=== PATIENT | male | born 1990 | race Caucasian/White ===

== ENCOUNTER 2019-08-22 10:52 | Emergency (ER) | payer SELFPAY ==
[2019-08-22 11:15] VITALS: BP 152/93; PULSE 90; RESP 16; TEMP 36.4; O2SAT 98; BMI 25.8
--- NOTE | 2019-08-22 12:14 | PC.NURSE ---
Examination of the Ear deferred to provider.
--- NOTE | 2019-08-22 12:40 | ED_ITS ---
HPI - Ear Problem <ERIC Garduno - Last Filed: 08/22/19 13:36> General Chief complaint: Ear Stated complaint: left side earache Time Seen by Provider: 08/22/19 11:42 Source: patient and family Mode of arrival: Ambulatory Limitations: no limitations History of Present Illness HPI Narrative: The patient is a 29-year-old male nonsmoker presents with his father for chief complaint of left ear pain. He states he has a history of remote ear infections, but no recent antibiotics. He has not taken any Tylenol or Motrin. He complains of recent cough and congestion. Denies any fevers nausea vomiting or diarrhea. States that he had sudden onset pain when he woke up this morning. Related Data Previous Rx's Medication Instructions Recorded amoxicillin-pot clavulanate 1 tab PO BID #14 tab 08/22/19 [Augmentin] Allergies Allergy/AdvReac Type Severity Reaction Status Date / Time No Known Drug Allergies Allergy Verified 08/22/19 11:15 Review of Systems <ERIC Garduno - Last Filed: 08/22/19 13:36> Review of Systems Narrative: GENERAL: Denies chills, fatigue, malaise, fever, sweats. HEENT: See HPI RESPIRATORY: Denies dyspnea, cough, wheezing, hemoptysis, sputum. CARDIOVASCULAR: Denies chest pain, palpitations, orthopnea, edema, GASTROINTESTINAL: Denies nausea, vomiting, abdominal pain, diarrhea, constipation, melena. : Denies dysuria, frequency, incontinence, hematuria, urinary retention. MUSCULOSKELETAL: denies weakness, joint pain, or bony pain SKIN: Denies rash, skin lesions, or other NEUROLOGIC: Denies weakness, headache, numbness, change in speech, confusion, seizures, incoordination. PSYCHIATRIC: No concerning psychosocial issues. 12 point review of systems is negative except for those stated above Exam <ERIC Garduno - Last Filed: 08/22/19 13:36> Narrative Exam Narrative: GENERAL: This is a well-nourished, well-developed patient, appears uncomfortable HEAD: Atraumatic. Normocephalic. No temporal or scalp tenderness. EYES: Pupils equal round and reactive. Extraocular motions intact. No scleral icterus. No injection or drainage. ENT: Nose without bleeding, purulent drainage or septal hematoma. Throat without erythema, tonsillar hypertrophy or exudate. Uvula midline. Airway patent. Left TM bulging and erythematous. Right TM pearly mosquera. Bilateral ear canals within normal limits. NECK: Trachea midline. No JVD or lymphadenopathy. Supple, nontender, no meningeal signs. CARDIOVASCULAR: Regular rate and rhythm RESPIRATORY: Clear to auscultation. Breath sounds equal bilaterally. No wheezes, rales, or rhonchi. No cough exam. No increased respiratory effort. No accessory muscle use. EXTREMITIES: No clubbing, cyanosis, or edema. No joint tenderness, effusion, or edema noted. BACK: Nontender without deformity or crepitance. No flank tenderness. NEURO: AOx3. SKIN: No rash or erythema on visible skin Initial Vital Signs Initial Vital Signs: Vital Signs Temperature 97.5 F L 08/22/19 11:15 Pulse Rate 90 08/22/19 11:15 Respiratory Rate 16 08/22/19 11:15 Blood Pressure 152/93 H 08/22/19 11:15 Pulse Oximetry 98 08/22/19 11:15 <Zahra Shea MD - Last Filed: 08/22/19 20:07> Initial Vital Signs Initial Vital Signs: Vital Signs Temperature 97.5 F L 08/22/19 11:15 Pulse Rate 90 08/22/19 11:15 Respiratory Rate 16 08/22/19 11:15 Blood Pressure 152/93 H 08/22/19 11:15 Pulse Oximetry 98 08/22/19 11:15 Course <ERIC Garduno - Last Filed: 08/22/19 13:36> Vital Signs Vital signs: Vital Signs - 8 hr 08/22/19 11:15 Temperature 97.5 F L Pulse Rate 90 Respiratory Rate 16 Blood Pressure 152/93 H Pulse Oximetry 98 <Zahra Shea MD - Last Filed: 08/22/19 20:07> Vital Signs Vital signs: Vital Signs - 8 hr 08/22/19 11:15 Temperature 97.5 F L Pulse Rate 90 Respiratory Rate 16 Blood Pressure 152/93 H Pulse Oximetry 98 Medical Decision Making <ERIC Garduno - Last Filed: 08/22/19 13:36> MDM Narrative Medical decision making narrative: The patient is a 29-year-old male who presents with a chief complaint of sudden onset left ear pain this morning. On exam, he has left-sided otitis media. He has no signs of systemic infection, no fevers vomiting diarrhea etcetera. Will treat with Augmentin b.i.d. for 7 days. Discussed at length follow up with primary care provider. Discussed [id number] measures as needed and able. Discussed come back to ER for acute concerns. Patient has no questions or concerns upon discharge and states understanding of return precautions as well as follow-up care. Discharge Plan Departure Patient Disposition: Home Clinical Impression: Otitis media Qualifiers: Otitis media type: unspecified Chronicity: acute Qualified Code(s): H66.90 - Otitis media, unspecified, unspecified ear Discharge Date/Time: 08/22/19 12:14 Instructions: Ear Infections (Alternative Therapy), Middle Ear Infections (Alternative Therapy), DI for Otitis Media (Middle Ear Infection)-Child Activity Restrictions/Additional Instructions: Today I found a left ear infection. I sent a prescription of amoxicillin with clavulanic acid to [facility] [place] [facility] Please use conservative measures including Tylenol, Motrin, warm packs. Please follow-up with primary care provider. I've given the contact information [facility] resource specialist they can help you find a primary care provider Please come back to the emergency department for any acute concerns. Prescriptions: New amoxicillin-pot clavulanate [Augmentin] 875-125 mg tablet 1 tab PO BID Qty: 14 RF: 0 Referrals: [facility] [Outside]
== END 2019-08-22 12:14 | disposition home or self-care (01) ==
PROVIDERS: Emergency Provider Nurse Practitioner Family
DX: H66.92 Otitis media, unspecified, left ear (principal)
CPT/HCPCS: 99281

== ENCOUNTER 2020-06-12 11:39 | Emergency (ER) | payer OTHER, SELFPAY ==
[2020-06-12 11:49] VITALS: BP 154/99; PULSE 103; RESP 16; TEMP 37.1; O2SAT 99; BMI 30.8
--- NOTE | 2020-06-12 11:49 | ED.DENTAL ---
HPI - Dental/Oral General Stated complaint: abcess tooth, lt side Time Seen by Provider: 06/12/20 11:40 Source: patient Mode of arrival: Ambulatory Limitations: no limitations History of Present Illness HPI Narrative: 30-year-old male smoker with history of widespread poor dentition presents with family member and a chief complaint of a spontaneously draining abscess that started draining just prior to arrival. He had been having some pain and minimal facial swelling for the past few days and actually just went to an outside clinic and was given antibiotics and encouragement to follow up with the dentist. There was no attempt at incision and drainage in their department and he states that spontaneously drained en route. MD Complaint: tooth pain Teeth map: 1. Onset (ago): day(s) Duration: constant Severity: moderate Relieving factors: nothing Exacerbating factors: chewing, cold and heat Context: history of dental caries Associated symptoms: gum swelling Treatment prior to arrival: none Related Data Previous Rx's Medication Instructions Recorded amoxicillin-pot clavulanate 1 tab PO BID #14 tab 08/22/19 [Augmentin] Allergies Allergy/AdvReac Type Severity Reaction Status Date / Time No Known Drug Allergies Allergy Verified 08/22/19 11:15 Review of Systems Constitutional Constitutional: Denies chills, Denies fatigue, Denies fever(s), Denies frequent falls, Denies lethargy and Denies weakness Eyes Eyes: Denies change in vision, Denies eye discharge, Denies irritation and Denies loss of vision ENT Ears, Nose, Mouth, and Throat: Denies change in voice, Denies dizziness, Denies neck pain, Denies sore throat and Denies throat swelling Comments: facial swelling, gum swelling, spontaneous drainage Cardiovascular Cardiovascular: Denies chest pain, Denies irregular heart rhythm, Denies lightheadedness, Denies palpitations, Denies dyspnea, Denies dyspnea on exertion and Denies orthopnea Respiratory Respiratory: Denies cough, Denies dyspnea, Denies dyspnea on exertion and Denies wheezing Gastrointestinal Gastrointestinal: Denies abdominal pain, Denies change in bowel habits, Denies diarrhea, Denies nausea and Denies vomiting Musculoskeletal Musculoskeletal: Denies neck pain and Denies numbness Integumentary/Breasts Skin/Breast: Denies pruritus, Denies erythema, Denies rash and Denies wounds Neurologic Neurologic: Denies behavioral changes, Denies confusion, Denies dizziness, Denies frequent falls, Denies loss of vision, Denies numbness and Denies weakness Psychiatric Psychiatric: Denies anxiety, Denies behavioral changes, Denies confusion, Denies depression, Denies homicidal ideation and Denies suicidal ideation Endocrine Endocrine: Denies fatigue, Denies flushing and Denies palpitations Hematologic/Lymphatic Hematologic/Lymphatic: Denies easy bruising Allergic/Immunologic Allergic/Immunologic: Denies urticaria, Denies throat swelling and Denies wheezing Patient History Smoking Status: Current every day smoker alcohol intake frequency: 0-2 drinks per day Substance Use Type: does not use Exam Narrative Exam Narrative: GEN: AOx3 and in mild distress EYES: Pupils are equal, round, and reactive to light and accommodation. Extraoccular muscles are intact bilaterally. There is no subconjunctival hemorrhage or exudate. ENT: minimal left facial swelling, widepsread poor dentition, minimal gum swelling. No ongoing fluctuance or significant ongoing drainage. CHEST: Lungs are clear to auscultation bilaterally and free of wheezes, rales, or rhonchi. Heart rate is regular rhythm, there are no murmurs, clicks, rubs, or gallops. There is no chest wall tenderness. ABD: Abdomen is soft and nontender. There is no guarding or rebound. Bowel sounds are normal in all 4 quadrants. There is no mass or organomegaly. EXT: Full painless ROM of all extremities with no loss of sensation or strength. SKIN: Warm, pink, and dry. No erythema or rash Discharge Plan Departure Patient Disposition: Home Clinical Impression: Abscess, dental Instructions: Tooth Abscess Activity Restrictions/Additional Instructions: *You have been diagnosed with [spontaneously draining dental abscess] *What to do: *Take medications as directed *Follow up with your dental provider in 2-3 days, call for an appointment. Let them know you were seen in the Emergency Department and that we ask that you be seen in follow up. We have given you contact info for Dr. Espinoza ( a local facial surgeon) who can help, or suggest other options. *Return to ER if you should have any new, worsening or concerning symptoms, such as [fever greater than 101 F, significant facial swelling, vomiting or inability to tolerate medications, or other bothersome symptoms] Prescriptions: No Action amoxicillin-pot clavulanate [Augmentin] 875-125 mg tablet 1 tab PO BID Qty: 14 RF: 0 Referrals: Ace Espinoza, DMD [Physician] -
== END 2020-06-12 11:58 | disposition home or self-care (01) ==
PROVIDERS: Emergency Provider Emergency Medicine
DX: K04.7 Periapical abscess without sinus (principal)
CPT/HCPCS: 99281

== ENCOUNTER 2020-12-27 13:19 | Emergency (ER) | payer OTHER, MEDICAID, SELFPAY ==
[2020-12-27 13:28] VITALS: BP 143/93; PULSE 100; RESP 15; TEMP 36.7; O2SAT 100; BMI 32.4
[2020-12-27 14:20] LABS: Add Manual Diff / Slide Review NO; Basophils Absolute Auto 100 /uL (0-100); Basophils Percent Auto 0.8 % (0-2); Eosinophils Absolute Auto 300 /uL (0-450); Eosinophils Percent Auto 2.4 % (2-4); Hematocrit 38.8 % (41-53); Hemoglobin 12.9 g/dL (13.5-17.5); Lymphocytes Absolute Auto 3200 /uL (1100-4500); Mean Corpuscular HGB Conc 33.3 % (30-36); Mean Corpuscular Hemoglobin 28.3 PG (26-34); Monocytes Absolute Auto 1500 /uL (0-900); Monocytes Percent Auto 10.7 % (3-14); Neutrophils Absolute Auto 8700 /uL (1500-7000); Neutrophils Percent Auto 63.1 % (50-75); Platelet Count 333 X10^3/uL (150-400); Red Blood Cell Count 4.57 X10^6/uL (4.5-5.9); Red Cell Distribution Width 13.3 % (11.6-14.8); White Blood Cell Count 13.8 X10^3/uL (4.5-11.0)
--- NOTE | 2020-12-27 14:24 | ED_ITS ---
HPI - Dental/Oral General Chief complaint: Dental/Oral Stated complaint: oral infection, on antibiotics but getting worse Time Seen by Provider: 12/27/20 13:58 Source: patient Mode of arrival: Ambulatory Limitations: no limitations History of Present Illness HPI Narrative: Patient is a 30-year-old male who presents with left-sided facial swelling. He was started on clindamycin yesterday 8 however today he has inc reasing left facial swelling. No fever or trismus. He has previously had dental abscess and placed on Augmentin in May of 2020. He has no dental appointment yet. No fever or chills. He has been taking ibuprofen for pain which does seem to be working. No difficulty swallowing. Related Data Previous Rx's Medication Instructions Recorded amoxicillin-pot clavulanate 1 tab PO BID #14 tab 08/22/19 [Augmentin] amoxicillin-pot clavulanate 1 tab PO Q12H #14 tab 12/27/20 [Augmentin] Allergies Allergy/AdvReac Type Severity Reaction Status Date / Time No Known Drug Allergies Allergy Verified 12/27/20 13:30 Review of Systems Review of Systems Narrative: GENERAL: Denies chills, fatigue, malaise, fever, sweats, travel HEENT: See HPI RESPIRATORY: Denies dyspnea, cough, wheezing, hemoptysis, sputum. CARDIOVASCULAR: Denies chest pain, palpitations, orthopnea, edema GASTROINTESTINAL: Denies nausea, vomiting, abdominal pain, diarrhea, constipation, melena. : Denies dysuria, frequency, incontinence, hematuria, urinary retention, flank pain. MUSCULOSKELETAL: Denies weakness, joint pain, or bony pain SKIN: No rash, no erythema, no pruritus NEUROLOGIC: Denies weakness, dizziness, headache, numbness, change in speech, confusion PSYCHIATRIC: No concerning psychosocial issues. 12 point review of systems is negative except for those stated above and HPI Patient History Social History Smoking Status: Current every day smoker Smoking Status: Current every day smoker alcohol intake frequency: holidays/special occasions only Substance Use Type: marijuana Exam Initial Vital Signs Initial Vital Signs: Vital Signs Temperature 98.1 F 12/27/20 13:28 Pulse Rate 100 H 12/27/20 13:28 Respiratory Rate 15 12/27/20 13:28 Blood Pressure 143/93 H 12/27/20 13:28 Pulse Oximetry 100 12/27/20 13:28 GENERAL: Well-appearing, well-nourished and in no acute distress. HEENT: Head atraumatic,EOMI, pupils reactive, no dental abscess no trismus obvious left-sided facial swelling no erythema no abscess swelling or induration CARDIOVASCULAR: Regular rate and rhythm without murmurs, rubs or gallops. RESPIRATORY: Breath sounds equal bilaterally, no wheezes rales or rhonchi. ABDOMEN: Soft, nontender. Normoactive bowel sounds all 4 quadrants. No guarding or rebound. EXTREMITIES: Normal range of motion, no clubbing or edema. Neurovascularly intact NEUROLOGICAL: Alert and oriented x4. SKIN: Warm, dry, no laceration, no petechiae, no rashes or lesions. Course Orders Ordered: Discontinued Medications Sodium Chloride (Normal Saline 0.9%) 1,000 mls @ 1,000 mls/hr IV BOLUS ONE Stop: 12/27/20 14:32 Last Infusion: 12/27/20 17:03 Dose: 0 mls/hr Documented by: Admin: 12/27/20 14:30 Dose: 1,000 mls/hr Documented by: LILIA Ampicillin Sodium/Sulbactam (Sodium 3 gm/ Sodium Chloride) 100 mls @ 100 mls/hr IV NOW ONE Stop: 12/27/20 14:26 Last Infusion: 12/27/20 17:03 Dose: 0 mls/hr Documented by: Admin: 12/27/20 14:30 Dose: 100 mls/hr Documented by: LILIA Ketorolac Tromethamine (Ketorolac 30 Mg/Ml Vial) 15 mg IV NOW ONE Stop: 12/27/20 16:36 Last Admin: 12/27/20 16:38 Dose: 15 mg Documented by: DEZ Vital Signs Vital signs: Vital Signs - 8 hr 12/27/20 13:28 12/27/20 14:41 12/27/20 14:42 Temperature 98.1 F Pulse Rate 100 H 94 H Respiratory Rate 15 13 Blood Pressure 143/93 H 158/106 H Pulse Oximetry 100 100 MDM - Dental/Oral Lab Data Attestation: I reviewed the patient's lab results. Result diagrams: 12/27/20 14:10 12/27/20 14:10 Labs: Lab Results 12/27/20 12/27/20 12/27/20 Range/Units 14:10 14:10 14:10 WBC 13.8 H (4.5-11.0) X10^3/uL RBC 4.57 (4.5-5.9) X10^6/uL Hgb 12.9 L (13.5-17.5) g/dL Hct 38.8 L (41-53) % MCV 85.0 (80-100) fL MCH 28.3 (26-34) PG MCHC 33.3 (30-36) % RDW 13.3 (11.6-14.8) % Plt Count 333 (150-400) X10^3/uL Neut % (Auto) 63.1 (50-75) % Lymph % (Auto) 23.0 L (25-40) % [place] % (Auto) 10.7 (3-14) % Eos % (Auto) 2.4 (2-4) % Baso % (Auto) 0.8 (0-2) % Neut # (Auto) 8700 H (3736-3369) /uL Lymph # (Auto) 3200 (3005-4417) /uL [place] # (Auto) 1500 H (0-900) /uL Eos # (Auto) 300 (0-450) /uL Baso # (Auto) 100 (0-100) /uL PT 12.0 (10.1-12.7) SECONDS INR 1.1 (0.9-1.3) APTT 46 H (26.4-36.2) SECONDS Sodium 138 (137-145) mmol/L Potassium 3.9 (3.4-5.1) mmol/L Chloride 103 (98-107) mmol/L Carbon Dioxide 29 (22-32) mmol/L BUN 17 (9-20) mg/dL Creatinine 0.85 (0.66-1.25) mg/dL Estimated GFR > 60.0 (>60) mL/min BUN/Creatinine Ratio 20.0 (6-22) Glucose 98 (70-100) mg/dL Lactate (0.7-2.1) mmol/L Calcium 9.7 (8.4-10.2) mg/dL Total Bilirubin 0.4 (0.2-1.3) mg/dL AST 30 (17-59) IU/L ALT 26 (<50) IU/L Alkaline Phosphatase 88 (38-126) U/L Total Protein 7.4 (6.3-8.2) g/dL Albumin 4.1 (3.5-5.0) g/dL Globulin 3.3 (1.7-4.1) g/dL Albumin/Globulin Ratio 1.2 (1.0-2.8) Lipase 41 (23-300) U/L Procalcitonin 0.05 (<0.5) ng/mL 12/27/20 Range/Units 14:10 WBC (4.5-11.0) X10^3/uL RBC (4.5-5.9) X10^6/uL Hgb (13.5-17.5) g/dL Hct (41-53) % MCV (80-100) fL MCH (26-34) PG MCHC (30-36) % RDW (11.6-14.8) % Plt Count (150-400) X10^3/uL Neut % (Auto) (50-75) % Lymph % (Auto) (25-40) % [place] % (Auto) (3-14) % Eos % (Auto) (2-4) % Baso % (Auto) (0-2) % Neut # (Auto) (6462-3424) /uL Lymph # (Auto) (0613-8636) /uL [place] # (Auto) (0-900) /uL Eos # (Auto) (0-450) /uL Baso # (Auto) (0-100) /uL PT (10.1-12.7) SECONDS INR (0.9-1.3) APTT (26.4-36.2) SECONDS Sodium (137-145) mmol/L Potassium (3.4-5.1) mmol/L Chloride (98-107) mmol/L Carbon Dioxide (22-32) mmol/L BUN (9-20) mg/dL Creatinine (0.66-1.25) mg/dL Estimated GFR (>60) mL/min BUN/Creatinine Ratio (6-22) Glucose (70-100) mg/dL Lactate 0.6 L (0.7-2.1) mmol/L Calcium (8.4-10.2) mg/dL Total Bilirubin (0.2-1.3) mg/dL AST (17-59) IU/L ALT (<50) IU/L Alkaline Phosphatase (38-126) U/L Total Protein (6.3-8.2) g/dL Albumin (3.5-5.0) g/dL Globulin (1.7-4.1) g/dL Albumin/Globulin Ratio (1.0-2.8) Lipase (23-300) U/L Procalcitonin (<0.5) ng/mL MDM Narrative Medical decision making narrative: At this time patient has mild leukocytosis with probable dental infection with mild facial swelling. No trismus or airway compromise. Previously on Augmentin which seemed to work best for him. He has only been on clindamycin short while at this time will switch his antibiotics. No dental abscess to drain. Discharge Plan Departure Patient Disposition: Home Clinical Impression: Dental infection Instructions: DI for Dental Pain Activity Restrictions/Additional Instructions: *You have been diagnosed with dental infection *What to do: At this time we will switch appear antibiotics to see if it helps her facial swelling. Blood work is overall reassuring but does show infection. *Continue to take medications as directed Stop taking clindamycin Start taking Augmentin 875 mg twice a day for 7 days--> SENT TO [facility] [place] Continue ibuprofen 800 mg every 8 hours if needed for pain *Follow up with your primary care provider in 2-3 days *Return to ER if you should have increasing facial swelling, difficulty breathing, redness or any new, worsening or concerning symptoms Prescriptions: New amoxicillin-pot clavulanate [Augmentin] 875-125 mg tablet 1 tab PO Q12H Qty: 14 RF: 0 No Action amoxicillin-pot clavulanate [Augmentin] 875-125 mg tablet 1 tab PO BID Qty: 14 RF: 0
[2020-12-27] MEDS: AMPICILLIN/SULBACTAM 3 GM 3 GM in SODIUM CHLORIDE 0.9% 100 ML IV (14:30)
[2020-12-27] MEDS: SODIUM CHLORIDE 0.9% 1,000 ML 1000 ML IV (14:30)
[2020-12-27 14:31] LABS: INR 1.1 (0.9-1.3)
[2020-12-27 14:34] LABS: PTT Partial Thromboplastin Tim 46 SECONDS (26.4-36.2)
[2020-12-27 14:40] LABS: Alanine Aminotransferase 26 IU/L (<50); Albumin 4.1 g/dL (3.5-5.0); Albumin Globulin Ratio 1.2 (1.0-2.8); Alkaline Phosphatase 88 U/L (38-126); Aspartate Aminotransferase 30 IU/L (17-59); Bilirubin Total 0.4 mg/dL (0.2-1.3); Blood Urea Nitrogen 17 mg/dL (9-20); Calcium 9.7 mg/dL (8.4-10.2); Carbon Dioxide 29 mmol/L (22-32); Chloride 103 mmol/L (98-107); Estimated Glomerular Filt Rate > 60.0 mL/min (>60); Globulin 3.3 g/dL (1.7-4.1); Glucose 98 mg/dL (70-100); HEMOLYSIS < 15 (0-50); Lactate (Lactic Acid) 0.6 mmol/L (0.7-2.1); Lipase 41 U/L (23-300); Potassium 3.9 mmol/L (3.4-5.1); Sodium 138 mmol/L (137-145); Total Protein 7.4 g/dL (6.3-8.2)
[2020-12-27 14:41] VITALS: PULSE 94; RESP 13; O2SAT 100
[2020-12-27 14:42] VITALS: BP 158/106
[2020-12-27 14:56] LABS: Procalcitonin 0.05 ng/mL (<0.5)
[2020-12-27] MEDS: KETOROLAC 30 MG/ML VIAL 15 MG IV (16:38)
[2020-12-27 17:03] VITALS: BP 172/92; PULSE 93; O2SAT 100
== END 2020-12-27 17:04 | disposition home or self-care (01) ==
PROVIDERS: Emergency Provider Emergency Medicine
DX: K04.7 Periapical abscess without sinus (principal)
CPT/HCPCS: 36415; 80053; 83605; 83690; 84145; 85025; 85610; 85730; 87040; 96365; 96366; 96375; 99284; J0295; J1885

== ENCOUNTER 2021-08-05 20:25 | Emergency (ER) | payer OTHER, MEDICAID, SELFPAY ==
[2021-08-05 20:42] VITALS: BP 151/81; PULSE 115; RESP 16; TEMP 37.6; O2SAT 98; BMI 31.7
== END 2021-08-05 22:30 | disposition left against medical advice (07) ==
PROVIDERS: Emergency Provider Emergency Medicine
DX: Z53.21 Procedure and treatment not carried out due to patient leaving prior to being seen by health care provider (principal)
CPT/HCPCS: 99281

== ENCOUNTER 2025-02-09 13:17 | Emergency (ER) | payer OTHER, SELFPAY ==
[2025-02-09 13:25] VITALS: BP 144/92; PULSE 104; RESP 16; TEMP 36.8; O2SAT 99; BMI 35.9
--- NOTE | 2025-02-09 13:31 | ED.SKABFB ---
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 Currently the patient has some lower extremity redness warmth swelling and pain for the past several weeks. He has been put on antibiotics in the past for a cellulitic picture. He denies any fever chills or other symptoms. Related Data Home Medications ?Medication ?Instructions ?Recorded ?Confirmed bupropion HCl 150 mg 24 hr tablet, 150 mg PO DAILY 02/09/25 02/09/25 extended release methadone 10 mg/mL oral syringe 137 mg PO DAILY 02/09/25 02/09/25 (FOR ORAL USE ONLY) naloxone 4 mg/actuation nasal spray intranasal 02/09/25 Previous Rx's ?Medication ?Instructions ?Recorded clindamycin HCl 300 mg capsule 300 mg PO Q6H #40 caps 02/09/25 clindamycin HCl 300 mg capsule 300 mg PO Q6H #40 caps 02/09/25 Allergies Allergy/AdvReac Type Severity Reaction Status Date / Time No Known Drug Allergies Allergy Verified 12/27/20 13:30 Review of Systems Review of Systems ROS Unobtainable: All systems reviewed & are unremarkable except as noted in HPI and below Patient History alcohol intake frequency: holidays/special occasions only Exam Initial Vital Signs Initial Vital Signs: Vital Signs Temperature 98.3 F 02/09/25 13:25 Pulse Rate 104 H 02/09/25 13:25 Respiratory Rate 16 02/09/25 13:25 Blood Pressure 144/92 H 02/09/25 13:25 Pulse Oximetry 99 02/09/25 13:25 Oxygen Delivery Method Room Air 02/09/25 13:25 General: Patient appears to be in no acute distress, acting appropriately Head: normocephalic, atraumatic, HEENT: Pupils equal round reactive, eyes tracking well, neck supple, no JVD Heart: regular rate and rhythm, no murmurs, rubs, or gallops heard Lungs: clear to auscultation, no adventitious sounds Abdomen: soft , nontender, nondistended, positive bowel sounds Neurological: no focal neurological signs, moving all extremities well, alert and oriented x3, Psych: good judgment ,good insight, mood is normal. lower ext have mild edema, some warmth, redness prison up legs , tender to palpation Course Vital Signs Vital signs: Vital Signs - 8 hr 02/09/25 13:25 Temperature 98.3 F Pulse Rate 104 H Respiratory Rate 16 Blood Pressure 144/92 H Pulse Oximetry 99 Oxygen Delivery Method Room Air MDM - Skin/Abscess/Foreign Bdy Differential Diagnosis Differential diagnosis: Likely abscess of skin or subcutaneous tissue, viral exanthem, allergic reaction to drug and cellulitis Condition is:: Inadequately Controlled Condition is at treatment goal?: No Medical Records Attestation: I reviewed the patient's medical records. Lab Data Attestation: I reviewed the patient's lab results. Lab results narrative: no recent labs MDM Narrative Medical decision making narrative: This was decided to discharge the patient back home with clindamycin 4 times a day for the next 10 days. Patient agreeable with this plan. He will follow up in 2-3 days if symptoms worsen. Discharge Plan Departure Patient Disposition: Home Clinical Impression: Cellulitis Qualifiers: Site of cellulitis: extremity Site of cellulitis of extremity: lower extremity Laterality: unspecified laterality Qualified Code(s): L03.119 - Cellulitis of unspecified part of limb Instructions: DI for Cellulitis -- Adult Activity Restrictions/Additional Instructions: take abx as directed, follow-up in 2-3 days if the infection is not improved. Prescriptions: New clindamycin HCl 300 mg capsule 300 mg PO Q6H Qty: 40 0RF clindamycin HCl 300 mg capsule 300 mg PO Q6H Qty: 40 0RF No Action bupropion HCl 150 mg tablet extended release 24 hr 150 mg PO DAILY methadone 10 mg/mL syringe 137 mg PO DAILY naloxone 4 mg/actuation spray,non-aerosol intranasal Stand Alone Forms: Patient Portal/API
--- NOTE | 2025-02-09 13:34 | PC.NURSE ---
redness in bilateral lower legs. h/o IV drug use and using methadone. dose today taken. reports cellulitis in the past however it was long ago and PO abx worked well. afebrile. appears well. vitals stable. Dr Berger in ED to see pt in triage. assessed and DC'd from triage area with verbal return precautions given.
--- NOTE | 2025-02-09 13:39 | PC.NURSE ---
Dr Berger saw pt in waiting area prior to director corporate security. US was ordered from waiting area and patient was taken for imaging. Will triage upon patients return. AAOx3 and ambulatory.
== END 2025-02-09 13:44 | disposition home or self-care (01) ==
PROVIDERS: Emergency Provider Family Medicine
DX: L03.119 Cellulitis of unspecified part of limb (principal)
CPT/HCPCS: 99281

== ENCOUNTER 2025-05-21 20:04 | Emergency (ER) | payer OTHER, SELFPAY ==
[2025-05-21 20:08] VITALS: BP 138/78; PULSE 108; RESP 16; TEMP 36.3; O2SAT 98; BMI 35.9
== END 2025-05-21 21:44 | disposition left against medical advice (07) ==
PROVIDERS: Emergency Provider Emergency Medicine
CPT/HCPCS: 99281